=== PATIENT | male | born 1950 | race Caucasian/White ===

== ENCOUNTER 2021-02-08 11:35 | Emergency (ER) | payer MEDICARE ==
--- NOTE | 2021-02-08 12:33 | EDM.PDOC ---
ED HPI GENERAL MEDICAL PROBLEM - General Chief Complaint: Lower Extremity Injury/Pain Stated Complaint: POSSIBLE ACHILLIES TEAR Time Seen by Provider: 02/08/21 12:13 Source of Information: Reports: Patient, Family, RN Notes Reviewed History Limitations: Reports: No Limitations - History of Present Illness INITIAL COMMENTS - FREE TEXT/NARRATIVE: 70-year-old gentleman presents the emergency department day following injury while playing pickle ball, he states he was running felt a pain in the back of his heel and now has noticed a change in his Achilles tendon - Related Data Allergies Allergy/AdvReac Type Severity Reaction Status Date / Time No Known Allergies Allergy Verified 02/08/21 12:16 Home Meds: Home Meds Simvastatin 20 mg PO DAILY 02/08/21 [History] Past Medical History HEENT History: Reports: Impaired Vision Cardiovascular History: Reports: High Cholesterol - Infectious Disease History Infectious Disease History: Reports: Chicken Pox, Influenza, Measles, Mumps - Past Surgical History Head Surgeries/Procedures: Reports: None HEENT Surgical History: Reports: Tonsillectomy Cardiovascular Surgical History: Reports: None Dermatological Surgical History: Reports: None Social & Family History - Tobacco Use Tobacco Use Status *Q: Never Tobacco User Second Hand Smoke Exposure: No - Caffeine Use Caffeine Use: Reports: Coffee - Recreational Drug Use Recreational Drug Use: No Review of Systems - Review of Systems Review Of Systems: See Below Musculoskeletal: Reports: Leg Pain ED EXAM, GENERAL - Physical Exam Exam: See Below Free Text/Narrative:: Harman's test on the right is negative Harman's test on the left reveals reduced response examination of the Achilles tendon reveals deficit which is consistent with a partial rupture of the Achilles tendon Exam Limited By: No Limitations General Appearance: Alert, WD/WN, No Apparent Distress Course - Vital Signs Last Recorded V/S: Last Vital Signs Temp 97.9 F 02/08/21 12:19 Pulse 60 02/08/21 12:19 Resp 16 02/08/21 12:19 BP 117/61 02/08/21 12:19 Pulse Ox 95 02/08/21 12:19 Departure - Departure Time of Disposition: 12:36 Disposition: Home, Self-Care 01 Condition: Fair Clinical Impression: Partial rupture of left Achilles tendon - Discharge Information Instructions: Achilles Tendon Tear Referrals: PCP,None [Primary Care Provider] - Forms: ED Department Discharge Additional Instructions: Continue to use the boot until reevaluated by orthopedics, call return to the emergency department worsening symptoms Sepsis Event Note (ED) - Evaluation Sepsis Screening Result: No Definite Risk - Focused Exam Vital Signs: Vital Signs Temp Pulse Resp BP Pulse Ox 02/08/21 12:19 97.9 F 60 16 117/61 95 02/08/21 12:10 97.9 F 60 16 117/61 95 - Assessment/Plan Plan: Assessment Acuity = acute Site and laterality = partial rupture Achilles tendon left side Etiology = sports injury Manifestations = none Location of injury = Home Lab values = none Plan Discussed case with Dr. Abdalla orthopedics [id number] recommended a boot with elevation follow-up in clinic in 1 week however this individual is from the [place] area and will be traveling home on Saturday they will call and make an appointment for follow-up with the orthopedic in [place] upon return home This note was dictated using [employer] voice recognition software please call with any questions on syntax or grammar.
== END 2021-02-08 13:04 | disposition home or self-care (01) ==
LOC: JP.ED 11:35
DX: S86.012A Strain of left Achilles tendon, initial encounter (principal); E78.00 Pure hypercholesterolemia, unspecified; Z79.899 Other long term (current) drug therapy; X58.XXXA Exposure to other specified factors, initial encounter; Y93.02 Activity, running
CPT/HCPCS: 99283